=== PATIENT | female | born 1995 | race Caucasian/White ===

== ENCOUNTER → 2016-12-16 | Outpatient (CLI) | payer BC ==
[~2016-12-16] MED LIST: BIRTH CONTROL PILL PO; CIPR500T78 PO; HYDR-3729 PO; IBUP-1773 PO; METF-146 PO; MTF500T; NAPR-243 PO; NORE1TAB40 PO; OMEG300C3 PO; ONDA4TAB8 PO; OXYC500S2 PO; SULF1TAB38 PO; TRAM-42 PO; TRAM50TA2 PO
[2016-12-16 10:24] LABS: MEAN PLATELET VOLUME 8.6 FL (7.4-10.4); RED BLOOD COUNT 4.36 10^6/uL (4.35-5.85); WHITE BLOOD COUNT 8.1 10^3/uL (4.3-11.0)
[2016-12-16 10:43] LABS: ALANINE AMINOTRANSFERASE 13 U/L (0-55); ALBUMIN 4.2 G/DL (3.2-4.5); ANION GAP 9 MMOL/L (5-14); ASPARTATE AMINO TRANSFERASE 10 U/L (5-34); BILIRUBIN,TOTAL 0.6 MG/DL (0.1-1.0); BLOOD UREA NITROGEN 9 MG/DL (7-18); BUN/CREATININE RATIO 10; CALCIUM 9.2 MG/DL (8.5-10.1); CARBON DIOXIDE 23 MMOL/L (21-32); CHLORIDE 107 MMOL/L (98-107); CHOLESTEROL 172 MG/DL (< 200); CREATININE SERUM 0.86 MG/DL (0.60-1.30); DIRECT LDL 101 MG/DL (1-129); GFR ESTIMATED > 60; GLUCOSE 84 MG/DL (70-105); POTASSIUM 4.4 MMOL/L (3.6-5.0); SODIUM 139 MMOL/L (135-145); TOTAL PROTEIN 6.7 G/DL (6.4-8.2); TRIGLYCERIDES 127 MG/DL (<150); VLDL CHOLESTEROL 25 MG/DL (5-40)
[2016-12-16 11:02] LABS: THYROID STIMULATING HORMONE 1.49 UIU/ML (0.35-4.94)
[2016-12-17 07:39] LABS: PROLACTIN 12.6 ng/mL
[2016-12-17 15:48] LABS: NUMBER HOURS COLLECTED 24 HOURS; URINE VOLUME REF 2500 ML
[2016-12-21 15:14] LABS: CREAT/CORTI URINE REF LAB 1425 MG/DAY (700-1600)
[2016-12-21 15:15] LABS: CORTISOL INTERP SEE FOOTNOTE; CREATININE URINE REF MG/DL 57 MG/DL
[2016-12-21 15:17] LABS: CORTISOL CREATININE RATIO URIN 28.77 ug/g CRT
== END ==
LOC: LAB 09:50
PROVIDERS: ATTEND Internal Medicine Endocrinology, Diabetes & Metabolism
DX: E88.81 Metabolic syndrome and other insulin resistance (principal); E28.2 Polycystic ovarian syndrome
CPT/HCPCS: 36415; 80053; 80061; 82530; 82570; 83036; 83498; 84146; 84443; 85027

== ENCOUNTER → 2017-03-13 | Outpatient (CLI) | payer BC ==
[2017-03-13 12:40] LABS: BILIRUBIN,URINE NEGATIVE (NEGATIVE); KETONES,URINE NEGATIVE (NEGATIVE); LEUKOCYTE ESTERASE ,URINE 2+ (NEGATIVE); NITRITE,URINE NEGATIVE (NEGATIVE); PH,URINE 6 (5-9); PROTEIN,URINE NEGATIVE (NEGATIVE); UROBILINOGEN,URINE NORMAL (NORMAL)
[2017-03-13 12:41] LABS: MEAN PLATELET VOLUME 8.8 FL (7.4-10.4); RED BLOOD COUNT 4.51 10^6/uL (4.35-5.85); RED CELL DISTRIBUTION WIDTH 11.9 % (10.0-14.5); WHITE BLOOD COUNT 8.2 10^3/uL (4.3-11.0)
--- NOTE | 2017-03-13 12:44 | Diagnostic Imaging Report ---
KUB. INDICATION: Abdominal pain. FINDINGS: Constipation and diarrhea. FINDINGS: There are moderate amounts of fecal material seen in the colon. There is a gastric band seen with the connecting catheter and reservoir noted. No dilated bowel loops are seen. No suspicious calcifications. IMPRESSION: Moderate amount of fecal material seen in the colon. Dictated by: Dictated on workstation # [id number]
[2017-03-13 13:04] LABS: ALANINE AMINOTRANSFERASE 11 U/L (0-55); ALBUMIN 4.1 G/DL (3.2-4.5); ANION GAP 11 MMOL/L (5-14); ASPARTATE AMINO TRANSFERASE 13 U/L (5-34); BILIRUBIN,TOTAL 0.6 MG/DL (0.1-1.0); BLOOD UREA NITROGEN 10 MG/DL (7-18); BUN/CREATININE RATIO 12; CALCIUM 8.8 MG/DL (8.5-10.1); CARBON DIOXIDE 21 MMOL/L (21-32); CHLORIDE 105 MMOL/L (98-107); CREATININE SERUM 0.81 MG/DL (0.60-1.30); GFR ESTIMATED > 60; GLUCOSE 84 MG/DL (70-105); POTASSIUM 4.1 MMOL/L (3.6-5.0); SODIUM 137 MMOL/L (135-145); TOTAL PROTEIN 6.8 G/DL (6.4-8.2)
== END ==
LOC: RAD 12:11
PROVIDERS: ATTEND Nurse Practitioner Family
DX: K59.09 Other constipation (principal)
CPT/HCPCS: 36415; 74000; 80053; 81000; 85027

== ENCOUNTER → 2017-07-01 | Outpatient (CLI) | payer BC ==
--- NOTE | 2017-07-01 19:37 | Diagnostic Imaging Report ---
EXAMINATION: Right breast ultrasound. INDICATION: Right breast lump. FINDINGS: There is a palpable lump at the 2:00 zone, 4 cm from the nipple. The four quadrants and retroareolar region of the right breast, including the palpable area, appear unremarkable. IMPRESSION: Negative study. Clinical followup of the palpable abnormality is recommended. ACR BI-RADS Category 1: Negative. Result letter will be mailed to the patient. Note: At least 10% of breast cancer is not imaged by mammography. Dictated by: Dictated on workstation # [id number]
== END ==
LOC: RAD 09:44
PROVIDERS: ATTEND Nurse Practitioner Family
DX: N63 Unspecified lump in breast (principal)
CPT/HCPCS: 76641

== ENCOUNTER → 2018-08-31 | Outpatient (CLI) | payer BC | LOC: LABNPT 11:30 | PROVIDERS: ATTEND Obstetrics & Gynecology | DX: Z53.9 Procedure and treatment not carried out, unspecified reason (principal) ==

== ENCOUNTER 2019-10-31 01:23 | Emergency (ER) | payer BC ==
--- NOTE | 2019-10-31 02:17 | ED Lower Extremity ---
General Chief Complaint: Lower Extremity Stated Complaint: RT LEG PAIN Source: patient Exam Limitations: no limitations (JASON LEUNG MED STUDENT) Source: patient Exam Limitations: no limitations (ESTER RIVERA MD) History of Present Illness Date Seen by Provider: Oct 31, 2019 Time Seen by Provider: 01:53 Initial Comments Pt complains of R LE pain beginning 10/30/2019 at approximately 1500. She states she was napping on the couch and woke up to shooting pain beginning in her hip and shooting down the front of her leg to her toes. She also experienced posterior calf pain at this time. She denies shortness of breath or chest pain. Admits a recent long-distance road trip to [place] a week ago. Onset: this afternoon Severity: moderate Pain/Injury Location: right hip, right leg (calf), right thigh Method of Injury: other (no injury) Modifying Factors: Improves With Immobilization; Worse With Movement ( JASON LEUNG MED STUDENT) Pain/Injury Location: right hip, right leg (calf), right thigh Method of Injury: other (no injury) (ESTER RIVERA MD) Allergies and Home Medications Allergies Coded Allergies: cefaclor (Verified Allergy, Intermediate, RASH, 09/25/16) Home Medications Hydrocodone/Acetaminophen 1 Each Tablet, 1 EACH PO Q4H Prescribed by: MONTSERRAT SPRING on 09/26/16 1406 Ibuprofen 600 Mg Tablet, 600 MG PO Q6H PRN for PAIN Prescribed by: MONTSERRAT SPRING on 09/26/16 1406 Metformin Hcl 1,000 Mg Tab.sr.24h, 1 EACH PO HS, (Reported) [place]-3 Fatty Acids 300 Mg Capsule, Unknown Dose PO DAILY, (Reported) Tramadol HCl 50 Mg Tablet, 50 MG PO Q12H, (Reported) [ Control Pill] , 1 TAB PO DAILY, (Reported) Patient Home Medication List Home Medication List Reviewed: Yes (JASON LEUNG MED STUDENT) Home Medication List Reviewed: Yes (ESTER RIVERA MD) Review of Systems Constitutional: No chills, No fever, No malaise, No weakness EENTM: No hearing loss, No ear pain, No eye pain, No vision loss Respiratory: No cough, No hemoptysis, No short of breath Cardiovascular: No chest pain, No edema Gastrointestinal: No abdominal pain, No constipation, No diarrhea, No nausea, No vomiting Genitourinary: No incontinence, No pain Musculoskeletal: No back pain, No joint pain Skin: No lesions, No lumps, No rash Psychiatric/Neurological: Denies Anxiety, Denies Depressed (JASON LEUNG MED STUDENT) Gastrointestinal: no symptoms reported Genitourinary: no symptoms reported Musculoskeletal: muscle pain; No muscle stiffness Skin: No change in color, No lesions (ESTER RIVERA MD) Past Bgxoyke-Tihpve-Bxvxfy Hx Past Med/Social Hx: Reviewed Nursing Past Med/Soc Hx (ESTER RIVERA MD) Patient Social History Recent Foreign Travel: No Contact w/Someone Who Travel: No Recent Hopitalizations: No (JASON LEUNG MED STUDENT) Immunizations Up To Date PED Vaccines UTD: Yes (JASON LEUNG MED STUDENT) Seasonal Allergies Seasonal Allergies: Yes (JASON LEUNG MED STUDENT) Past Medical History Adenoidectomy, Tonsillectomy Reproductive Disorders: Yes (PCOS, PELVIC PAIN) Female Reproductive Disorders: Menstrual Problems, Polycystic Ovarian Dis Sexually Transmitted Disease: No HIV/AIDS: No Bladder Infection Loss of Vision: Bilateral Hearing Impairment: Denies Adverse Reaction/Blood Tranf: No (N/A) (JASON LEUNG MED STUDENT) Family Medical History Reviewed Nursing Family Hx (ESTER RIVERA MD) Cancer of colon GRANDPARENTS Family history: Cardiovascular disease GRANDPARENTS Family history: Diabetes mellitus GRANDPARENTS Heart disease GRANDPARENTS History of - respiratory disease GRANDPARENTS No Family History of: Abdominal aortic aneurysm Family history: Alzheimer's disease Family history: Asthma Family history: Gastrointestinal disease Family history: Hypertension Family history: Thyroid disorder Hereditary disease Physical Exam Vital Signs Capillary Refill : (JASON LEUNG MED STUDENT) Height, Weight, BMI Height: 5'6.00" Weight: 184lbs. 0.0oz. [id number]; 29.7 BMI Method:Stated General Appearance: WD/WN, no apparent distress HEENT: PERRL/EOMI, normal ENT inspection, TMs normal, pharynx normal Neck: supple, normal inspection Cardiovascular: regular rate, rhythm, no edema, no gallop, no murmur Respiratory: chest non-tender, lungs clear, normal breath sounds, no respiratory distress, no accessory muscle use Gastrointestinal: non tender, soft Back: normal inspection, no CVA tenderness, no vertebral tenderness Hips: right hip pain (JASON LEUNG,MED STUDENT) General Appearance: WD/WN, mild distress Cardiovascular: regular rate, rhythm, no murmur Respiratory: lungs clear, normal breath sounds Gastrointestinal: non tender, soft Hips: right hip pain Legs: right leg pain Neurologic/Psychiatric: alert, oriented x 3 Skin: normal color, warm/dry (ESTER RIVERA MD) Progress/Results/Core Measures Results/Orders Lab Results Laboratory Tests Test 10/31/19 02:30 Range/Units White Blood Count 12.5 H 4.3-11.0 10^3/uL Red Blood Count 4.40 4.35-5.85 10^6/uL Hemoglobin 13.3 11.5-16.0 G/DL Hematocrit 39 35-52 % Mean Corpuscular Volume 89 80-99 FL Mean Corpuscular Hemoglobin 30 25-34 PG Mean Corpuscular Hemoglobin Concent 34 32-36 G/DL Red Cell Distribution Width 13.7 10.0-14.5 % Platelet Count 361 130-400 10^3/uL Mean Platelet Volume 8.3 7.4-10.4 FL Neutrophils (%) (Auto) 63 42-75 % Lymphocytes (%) (Auto) 25 12-44 % Monocytes (%) (Auto) 8 0-12 % Eosinophils (%) (Auto) 4 0-10 % Basophils (%) (Auto) 0 0-10 % Neutrophils # (Auto) 7.9 H 1.8-7.8 X 10^3 Lymphocytes # (Auto) 3.1 1.0-4.0 X 10^3 Monocytes # (Auto) 1.0 0.0-1.0 X 10^3 Eosinophils # (Auto) 0.5 H 0.0-0.3 10^3/uL Basophils # (Auto) 0.0 0.0-0.1 10^3/uL D-Dimer 0.20 0.00-0.49 UG/ML Sodium Level 139 135-145 MMOL/L Potassium Level 3.9 3.6-5.0 MMOL/L Chloride Level 105 98-107 MMOL/L Carbon Dioxide Level 19 L 21-32 MMOL/L Anion Gap 15 H 5-14 MMOL/L Blood Urea Nitrogen 11 7-18 MG/DL Creatinine 0.97 0.60-1.30 MG/DL Estimat Glomerular Filtration Rate > 60 BUN/Creatinine Ratio 11 Glucose Level 87 70-105 MG/DL Calcium Level 9.0 8.5-10.1 MG/DL Corrected Calcium 8.8 8.5-10.1 MG/DL Total Bilirubin 0.5 0.1-1.0 MG/DL Aspartate Amino Transf (AST/SGOT) 11 5-34 U/L Alanine Aminotransferase (ALT/SGPT) 8 0-55 U/L Alkaline Phosphatase 38 L 40-136 U/L Total Protein 7.1 6.4-8.2 GM/DL Albumin 4.3 3.2-4.5 GM/DL (ESTER RIVERA MD) My Orders Orders - ESTER RIVERA MD Cbc With Automated Diff (10/31/19 02:20) Comprehensive Metabolic Panel (10/31/19 02:20) Fibrin Degradation Products (10/31/19 02:20) Ketorolac Injection (Toradol Injection) (10/31/19 02:21) Cyclobenzaprine Tablet (Flexeril Tablet) (10/31/19 03:35) Prednisone Tablet (Deltasone Tablet) (10/31/19 03:45) (ESTER RIVERA MD) Progress Progress Note : Time: 02:13 Progress Note Seen and evaluated. Ordering CBC, CMP and D-dimer to r/o DVT. Administering ketorolac injection for pain. More likely, given distribution and characterization of pain, she is experiencing sciatica/rectus femoris muscle strain. Will offer OMT. 0251: D-Dimer negative at 0.20. Discussed results with pt and mother. Will offer steroid and flexoril injection. (JASON LEUNG,MED STUDENT) Progress Note : Progress Note Avenue seen and evaluated patient and agree with above except as indicated. I have directed the plan of care. Patient is here with right lower extremity pain from the hip to the toe include posterior calf. She has had recent long car ride. No swelling noted. No recent injury or surgery. She is concerned about blood clot. Labs including d-dimer ordered. Toradol 60 mg IM ordered. Monitor patient. 0345: D-dimer negative. OMT performed by student which helped some. We will initiate prednisone and Flexeril. Discharged home with return precautions. Patient verbalize understanding instructions and agreement with plan. (ESTER RIVERA MD) Departure Impression Primary Impression: Sciatica, right side Disposition: 01 HOME, SELF-CARE Condition: Stable Departure-Patient Inst. Decision time for Depature: 03:56 (ESTER RIVERA MD) Referrals: BONNIE GARBER MD (PCP/Family) Primary Care Physician Patient Instructions: Sciatica (DC) Add. Discharge Instructions: All discharge instructions reviewed with patient and/or family. Voiced understanding. Take medications as directed. You may take ibuprofen 800 mg every 8 hours as needed for pain. You my also take Tylenol/acetaminophen 1000 mg every 8 hours as needed for pain. Drink plenty of fluids. Follow-up with your doctor this week for recheck and further evaluation if not improving. Return for worse pain, weakness, numbness between your legs, difficulty with walking or going to the bathroom, fever or other concerns as needed. Scripts Prednisone (Prednisone) 20 Mg Tab 40 MG PO DAILY, #12 TAB 0 Refills Prov: ESTER RIVERA MD 10/31/19 Cyclobenzaprine HCl (Cyclobenzaprine HCl) 10 Mg Tablet 10 MG PO Q8H PRN for SPASMS, #15 TAB 0 Refills Prov: ESTER RIVERA MD 10/31/19 JASON LEUNG,MED STUDENT Oct 31, 2019 02:17 ESTER ALFORD MD Oct 31, 2019 03:54 POS
[2019-10-31] MEDS ORDERED: KETOROLAC 60 MG/2 ML VIAL IM STA (02:21)
[2019-10-31 02:38] LABS: BASOPHILS % (AUTO) 0 % (0-10); EOSINOPHILS # (AUTO) 0.5 10^3/uL (0.0-0.3); EOSINOPHILS % (AUTO) 4 % (0-10); HEMATOCRIT 39 % (35-52); HEMOGLOBIN 13.3 G/DL (11.5-16.0); LYMPHOCYTES # (AUTO) 3.1 X 10^3 (1.0-4.0); LYMPHOCYTES % (AUTO) 25 % (12-44); MEAN CORPUSCULAR HEMOGLOBIN 30 PG (25-34); MEAN CORPUSCULAR HGB CONC 34 G/DL (32-36); MEAN CORPUSCULAR VOLUME 89 FL (80-99); MEAN PLATELET VOLUME 8.3 FL (7.4-10.4); MONOCYTES % (AUTO) 8 % (0-12); NEUTROPHILS # (AUTO) 7.9 X 10^3 (1.8-7.8); NEUTROPHILS % (AUTO) 63 % (42-75); PLATELET COUNT 361 10^3/uL (130-400); RED CELL DISTRIBUTION WIDTH 13.7 % (10.0-14.5); WHITE BLOOD COUNT 12.5 10^3/uL (4.3-11.0)
[2019-10-31 02:56] LABS: ALANINE AMINOTRANSFERASE 8 U/L (0-55); ALBUMIN 4.3 GM/DL (3.2-4.5); ALKALINE PHOSPHATASE 38 U/L (40-136); BILIRUBIN,TOTAL 0.5 MG/DL (0.1-1.0); BUN/CREATININE RATIO 11; CARBON DIOXIDE 19 MMOL/L (21-32); CHLORIDE 105 MMOL/L (98-107); CREATININE SERUM 0.97 MG/DL (0.60-1.30); GFR ESTIMATED > 60; GLUCOSE 87 MG/DL (70-105); POTASSIUM 3.9 MMOL/L (3.6-5.0); SODIUM 139 MMOL/L (135-145); TOTAL PROTEIN 7.1 GM/DL (6.4-8.2)
[2019-10-31] MEDS ORDERED: CYCLOBENZAPRINE 10 MG (FLEXERIL) TAB PO STA (03:35)
[2019-10-31] MEDS ORDERED: predniSONE 20 MG TAB PO ONE (03:45)
[2019-10-31] MEDS ORDERED: PRD20T PO (03:58)
[2019-10-31] MEDS ORDERED: CYCL10TA9 PO (03:58)
[2019-10-31 04:21] VITALS: BP 140/81
== END 2019-10-31 04:27 | disposition home or self-care (01) ==
LOC: EDUNIT# 01:23 → ER 01:25
DX: M54.31 Sciatica, right side (principal); Z88.1 Allergy status to other antibiotic agents; Z79.84 Long term (current) use of oral hypoglycemic drugs; Z90.89 Acquired absence of other organs; Z80.0 Family history of malignant neoplasm of digestive organs; Z82.49 Family history of ischemic heart disease and other diseases of the circulatory system
CPT/HCPCS: 36415; 80053; 85025; 85379